=== PATIENT | male | born 1955 | race Caucasian/White ===

== ENCOUNTER → 2021-04-02 | Outpatient (CLI) | payer MEDICARE | LOC: MRI 13:52 | DX: M51.36 Other intervertebral disc degeneration, lumbar region (principal); M43.9 Deforming dorsopathy, unspecified; R93.7 Abnormal findings on diagnostic imaging of other parts of musculoskeletal system | CPT/HCPCS: 72148 ==

== ENCOUNTER 2021-09-22 16:07 | Emergency (ER) | payer MEDICARE | END 2021-09-22 19:59 | disposition left against medical advice (07) | LOC: ER1 16:07 | DX: M25.552 Pain in left hip (principal); R10.2 Pelvic and perineal pain; F17.210 Nicotine dependence, cigarettes, uncomplicated | CPT/HCPCS: 72192; 73552; 99283 ==